=== PATIENT | male | born 1990 | race American Indian/Alaskan Native ===

== ENCOUNTER 2019-04-09 19:43 | Emergency (ER) | payer SELFPAY ==
[2019-04-09 20:02] VITALS: BP 191/117
--- NOTE | 2019-04-09 20:41 | Emergency Department Report ---
ED Extremity Problem HPI - General Chief complaint: Extremity Injury, Lower Stated complaint: GOUT/PAIN Time Seen by Provider: 04/09/19 20:33 Source: patient Mode of arrival: Ambulatory Limitations: No Limitations - History of Present Illness Initial comments: pt presents to the ED with c/o left foot edema and pain that began earlier today. states that he typically has gout flares in the feet. states he last had one around july 2018. states he is ambulatory. he denies any fever, vomiting, diarrhea. he states he has been told he has high blood pressure but has not been on meds. no allergies to meds. he does not have a PCP. he states that he believes seafood flared his gout. - Related Data Previous Rx's Medication Instructions Recorded Last Taken Type Acetaminophen/Codeine [Tylenol 1 tab PO Q6H PRN #7 tab 04/09/19 Unknown Rx /Codeine # 3 tab] Colchicine 0.6 mg PO ONCE 1 Days #3 capsule 04/09/19 Unknown Rx Indomethacin 50 mg PO Q8H #21 capsule 04/09/19 Unknown Rx amLODIPine 5 mg PO DAILY #30 tab 04/09/19 Unknown Rx predniSONE [Deltasone] 40 mg PO DAILY 5 Days #10 tablet 04/09/19 Unknown Rx Allergies Allergy/AdvReac Type Severity Reaction Status Date / Time No Known Allergies Allergy Unverified 04/09/19 20:03 ED Review of Systems ROS: Stated complaint: GOUT/PAIN Other details as noted in HPI Comment: All other systems reviewed and negative ED Past Medical Hx - Past Medical History Previous Medical History?: Yes Additional medical history: GOUT, Morbid Obesity - Surgical History Past Surgical History?: No - Medications Home Medications: Home Medications Medication Instructions Recorded Confirmed Last Taken Type Acetaminophen/Codeine [Tylenol 1 tab PO Q6H PRN #7 tab 04/09/19 Unknown Rx /Codeine # 3 tab] Colchicine 0.6 mg PO ONCE 1 Days #3 capsule 04/09/19 Unknown Rx Indomethacin 50 mg PO Q8H #21 capsule 04/09/19 Unknown Rx amLODIPine 5 mg PO DAILY #30 tab 04/09/19 Unknown Rx predniSONE [Deltasone] 40 mg PO DAILY 5 Days #10 tablet 04/09/19 Unknown Rx ED Physical Exam - General Limitations: No Limitations General appearance: alert, in no apparent distress - Head Head exam: Present: atraumatic, normocephalic - Eye Eye exam: Present: normal appearance - ENT ENT exam: Present: mucous membranes moist - Extremities Exam Extremities exam: Present: other (TTP left foot diffusely, edema to the left foot, increased warmth, mild erythema, FROM of the left ankle, foot, and toes, neurovascuarly intact) - Neurological Exam Neurological exam: Present: alert, oriented X3 - Psychiatric Psychiatric exam: Present: normal affect, normal mood - Skin Skin exam: Present: warm, dry, intact ED Course Vital Signs 04/09/19 04/09/19 19:56 20:33 Temperature 99.1 F 99.1 F Pulse Rate 87 85 Respiratory 18 18 Rate Blood Pressure 191/117 191/117 O2 Sat by Pulse 98 100 Oximetry ED Medical Decision Making - Medical Decision Making pt presents to the ED with c/o left foot edema and pain that began earlier today. states that he typically has gout flares in the feet. states he last had one around july 2018. states he is ambulatory. he denies any fever, vomiting, diarrhea. he states he has been told he has high blood pressure but has not been on meds. no allergies to meds. he does not have a PCP. he states that he believes seafood flared his gout. vitals with elevated BP. on exam: TTP left foot diffusely, edema to the left foot, increased warmth, mild erythema, FROM of the left ankle, foot, and toes, neurovascuarly intact. examination consistent with gout. no signs of septic arthritis. pt given prescription for predisone, colchicine, indomethacin, and tylenol #3. due to patients elevated BP and he states it has been elevated in the past, will place pt on amlodipine 5mg daily. advised pt please take medication as prescribed. do not drive or operate heavy machinery while taking medication. please follow up with a primary care doctor in the next 2-3 days for reexamination and to discuss your blood pressure. please keep a blood pressure log and take it to the primary care doctor. eat a low sodium diet. increase your water intake. return to the emergency room for any new or worsening symptoms. - Differential Diagnosis gout, RA, septic joint, arthritis Critical care attestation.: If time is entered above; I have spent that time in minutes in the direct care of this critically ill patient, excluding procedure time. ED Disposition Clinical Impression: Gout of foot Qualifiers: Gout etiology: unspecified cause Chronicity: acute Laterality: left Qualified Code(s): M10.9 - Gout, unspecified Hypertension Qualifiers: Hypertension type: essential hypertension Qualified Code(s): I10 - Essential (primary) hypertension Disposition: TO HOME OR SELFCARE Is pt being admited?: No Does the pt Need Aspirin: No Condition: Stable Instructions: Acute Gouty Arthritis (ED), Hypertension (ED) Additional Instructions: please take medication as prescribed. do not drive or operate heavy machinery while taking medication. please follow up with a primary care doctor in the next 2-3 days for reexamination and to discuss your blood pressure. please keep a blood pressure log and take it to the primary care doctor. eat a low sodium diet. increase your water intake. return to the emergency room for any new or worsening symptoms. Prescriptions: amLODIPine 5 mg PO DAILY #30 tab Colchicine 0.6 mg PO ONCE 1 Days #3 capsule predniSONE [Deltasone] 40 mg PO DAILY 5 Days #10 tablet Indomethacin 50 mg PO Q8H #21 capsule Acetaminophen/Codeine [Tylenol /Codeine # 3 tab] 1 tab PO Q6H PRN #7 tab PRN Reason: Pain , Severe (7-10) Referrals: ANGEL MIR MD [Staff Physician] - 2-3 Days [facility] [Provider Group] - 2-3 Days [facility] [Outside] - 2-3 Days [facility] [Outside] - 2-3 Days Forms: Work/School Release Form(ED) Time of Disposition: 20:45 Print Language: FRISIAN
== END 2019-04-09 21:11 | disposition home or self-care (01) ==
LOC: ED 19:43
DX: M10.9 Gout, unspecified (principal); I10 Essential (primary) hypertension; E66.01 Morbid (severe) obesity due to excess calories; Z79.899 Other long term (current) drug therapy